=== PATIENT | male | born 1945 | race Caucasian/White ===

== ENCOUNTER 2025-07-16 14:54 | Emergency (ER) | payer BC, MEDICARE, SELFPAY ==
[2025-07-16 14:57] VITALS: BP 144/80; PULSE 65; RESP 16; TEMP 36.8; O2SAT 97; BMI 26.6
--- NOTE | 2025-07-16 14:57 | ED.GENADULT ---
HPI - General Adult General Chief complaint: Wound/Laceration Stated complaint: cut inside of mouth Time Seen by Provider: 07/16/25 15:16 Source: patient and RN notes reviewed Mode of arrival: ambulatory Limitations: no limitations History of Present Illness ED Provider: Nasrin Ruelas PA-C HPI narrative: This is an 80-year-old male, with a history of hypertension, hyperlipidemia, and anticoagulated on Eliquis, who presents emergency department after cutting the inside of his mouth. Patient states that he was eating a toasted bagel and accidentally cut underneath his tongue. He states that it has been bleeding for the last 6 hours. He has been applying pressure without any relief. He denies any dizziness or blurred vision. No other complaints or concerns at this time. MD complaint: Laceration Related Data Allergies Allergy/AdvReac Type Severity Reaction Status Date / Time No Known Allergies (No Known Allergy Verified 07/16/25 15:00 Allergies*) PMFSH Social History Social History Advance Directives: No Advance Directives Information Provided: No Do you have a plan to hurt others: No Plan Physical Exam ED Exam Exam: General: Awake, alert, and oriented X3. No acute distress. HEENT: Left lateral floor of mouth, there is a pinpoint laceration with active bleeding noted. CVS: Normal heart rate and rhythm. Pulses normal. Respiratory: No respiratory distress Skin: Warm, dry, no rashes noted to exposed skin. Normal skin color. Normal skin turgor. Extremities: Normal to inspection Neuro: Oriented X 3. No motor deficit. No sensory deficit. Vital Signs: Vital Signs - 24 hr 07/16/25 14:57 07/16/25 16:41 Temperature 98.3 F 98.3 F Pulse Rate 65 66 Respiratory Rate 16 16 Blood Pressure 144/80 H 127/75 Pulse Oximetry 97 97 Oxygen Delivery Method Room Air Room Air BMI result Body Mass Index 26.6 Medications Administered Discontinued Medications Generic Name Dose Route Start Last Admin Trade Name Freq PRN Reason Stop Dose Admin Silver Nitrate 1 appl 07/16/25 15:01 07/16/25 15:20 Silver Nitrate Applicator Stick..Ea. TOPICAL 07/16/25 15:02 1 appl ONCE ONE Administration Tranexamic Acid 1,000 mg 07/16/25 15:17 07/16/25 15:20 Tranexamic Acid 1,000 Mg/10 Ml Vial IRRIGATION 07/16/25 15:18 1,000 mg ONCE ONE Administration Medical Decision Making Medical Decision Making MDM Narrative: This is a 80-year-old male who presents emergency department with concerns of abrasion to his floor of his mouth. He is eating a hard bagel when he suddenly lacerated this area. There has been active bleeding since. No dizziness, blurred vision, chest pain or shortness for breath. Pinpoint laceration noted. Silver nitrate applied, hemostasis not achieve therefore TXA soaked gauze applied to wound, left on for 20 minutes, removed, and reapplied for 10 more minutes, hemostasis achieved, patient tolerated procedure well without any complications or concerns. Given strict return precautions. He understands and agrees with plan. Patient stable for discharge. Differential Diagnosis Differential Diagnoses: The differential diagnosis associated with the presentation includes Laceration, abrasion, puncture wound Discharge Plan Discharge Clinical Impression: Abrasion of lower gingiva Patient Disposition: Home, Self-Care Instructions: Abrasion (ED) Additional Instructions: You were seen in the emergency department after cutting the inside of your mouth. We applied a silver nitrate stick to anticipate on burning the vessel however this did not work therefore we applied medication to help stop the bleeding. This was successful. It is very important that you eat soft foods over the next couple of days. Avoid very hot or very cold substances. If any new or worsening symptoms occur including but not limited to rebleeding, increased pain, please return for re-evaluation. Interventions: ED Discharge Assessment Last Done: 07/16/25 16:41 Discharge Date/Time: 07/16/25 16:42 Print Language: Kittitian
[2025-07-16] MEDS: Tranexamic Acid 1,000 MG/10 ML VIAL 1000 MG IRRIGATION (15:20)
[2025-07-16] MEDS: Silver Nitrate Applicator STICK..EA. 1 APPL TOPICAL (15:20)
--- OUTSIDE RECORDS SUMMARY | 2025-07-16 15:35 | XMS_ITS | Encounter Summary ---
Author Organization [facility] Address [address] [place] [address] Phone Care Team Providers Care Senior Policy Analyst Name Role Phone Will Nicole MD Unavailable [phone] Maciel Martinez MD Primary Care Provider [phone] Encounter Details Date Type Department Care Team (Late st Contact Info) Description 04/23/2024 Ancillary Orders [facility] [address] [facility] [address]rd Floor, [address] [place] [address] Ryan Porter MD [address] [place] [address] [email or web address] Social History Tobacco Use Types Packs/Day Years Used Date Smoking Tobacco: Former Cigarettes 0.5 16 1 5 - 1970 Smokeless Tobacco: Never Comments:Smoking History Pac ks/day: <=0.5 Quit smokin10/27/1970 Alcohol Use Standard Drinks/Week Comments Yes 7 (1 standard drink = 0.6 oz pur e alcohol) Wine nightly w/ dinner Education Answer Date Recorded Are you interested in more education? Not on raven e 03/01/2023 Are you concerned about learning? Not on file 03/01/2023 No 03/01/2023 No 03/01/2023 Food Answer Date Recorded Within the past 6 months we worried whether our food would run out before we got money to buy more. I choose not to answer 07/22/2023 Within the past 6 months the food we bought just didn't last and we didn't have enough money to get more. I choose not to answer 07/22/2023 Residential Stability Answer Date Recor ded What is your housing situation today? I choose n ot to answer 07/22/2023 How many times have you move d in the past 12 months? I choose not to answer 07/22/2023 Paying for Meds Answer Date Recorded Do you have trouble paying for medicines? I suzy se not to answer 07/22/2023 Paying Utility Bills Answer Date Record ed Do you have trouble paying y our heating or electricity bill? I choose not to answer 07/22/2023 Transportation Answer Date Recorded Has the lack of transportati on kept you from medical appointments or from getting medications? I choose not to answer 07/22/2023 Digital Access Answer Date Recorded No 07/22/2023 No 07/22/2023 Do you have reliable internet access at home? I choose not to answer 07/22/2023 Do you have a device (e.g., phone, tablet, computer) with a working camera? I choose not to answer 07/22/2023 Sex and Gender Information Value Date Recorded Sex Assigned at Male 05/25/2019 7:55 AM EDT Legal Sex Male 5:31 PM EST Gender Identity Male 05/25/2019 7:55 AM EDT Sexual Orientation Straight 05/25/2019 7: 55 AM EDT documented as of this encounter Plan of Treatment Upcoming Encounters Date Type Department Care Team (Late st Contact Info) Description 08/15/2025 9:30 AM EDT Office Visit [facility] [address] [place] [address] [place] [address] Maciel Martinez MD [address] [facility] [place] [address] 03/29/2026 8:20 AM EDT Office Visit [facility] [place] [address] Floor, [address] [place] [address] Will Nicole MD [address] [facility], [address] [place] [address] [email or web address] documented as of this encounter Visit Diagnoses Not on filedocumented in this encounter Additional Health Concerns Assessment Noted Time PHQ-2 Depression Total Score: 0 07/22/20 23 9:41 AM EDT documented as of this encounter Care Teams Senior Policy Analyst Relationship Specialty Start Date End Date Maciel Martinez MD [address] [place] [address], [address] [place] [address] [email or web address] PCP - General Internal Medicine 02/06/21 Will Nicole MD [address] [place] [address], [address] [address] [email or web address] Air Pumper Cardiology 04/30/19 documented as of this encounter Additional Source Comments The information contained in this document represents components of the legal health record. It is not the complete legal health record.[facility]
--- OUTSIDE RECORDS SUMMARY | 2025-07-16 15:35 | XMS_ITS | Encounter Summary ---
Author Organization [facility] Address [address] [facility] [address] [place] [address] Phone Care Team Providers Care Mat Weaver Name Role Phone Morgan Ly MD Primary Care Provider Unavailable Will Nicole MD Unavailable Maciel Martinez MD Primary Care Provider [phone] Encounter Details Date Type Department Care Team (Late Contact Info) Description 09/28/2020 Procedure Pass [facility] Endoscopy Admitting Dept Virtual Department [address] [place] [address] Social History Tobacco Use Types Packs/Day Years Used Date Smoking Tobacco: Former Smokeless Tobacco: Former Comments:Smoking History Pac ks/day: <=0.5 Quit smokin10/27/1970 Alcohol Use Standard Drinks/Week Comments Yes 7 (1 standard drink = 0.6 oz pur e alcohol) Sex and Gender Information Value Date Recorded Sex Assigned at Male 05/25/2019 7:55 AM EDT Legal Sex Male 5:31 PM EST Gender Identity Male 05/25/2019 7:55 AM EDT Sexual Orientation Straight 05/25/2019 7: 55 AM EDT documented as of this encounter Plan of Treatment Upcoming Encounters Date Type Department Care Team ([facility] Contact Info) Description 08/15/2025 9:30 AM EDT Office Visit [facility] [place] [address] [place] [address] Maciel Martinez MD [address] [place] [address], [address] [place] [address] 03/29/2026 8:20 AM EDT Office Visit [facility] [address] [place] [address] 3rd Floor, [address] [place] [address] Will Nicole MD [address] [place] [address], [address] [address] documented as of this encounter Visit Diagnoses Not on filedocumented in this encounter Care Teams Mat Weaver Relationship Specialty Start Date End Date Morgan Ly MD PCP - General Rheumatology 04/30/19 02/05/21 Maciel Martinez MD [address] [place] [address], [address] [place] [address] PCP - General Internal Medicine 02/06/21 Will Nicole MD [address] [place] [address], [address] [address] Groundskeeping Maintenance Cardiology 04/30/19 documented as of this encounter Additional Source Comments The information contained in this document represents components of the legal health record. It is not the complete legal health record.[facility]
--- OUTSIDE RECORDS SUMMARY | 2025-07-16 15:35 | XMS_ITS | Encounter Summary ---
Author Organization [facility] Address [address] [facility] [address] [place] [address] Phone Care Team Providers Care Management Consultant Name Role Phone Will Nicole MD Unavailable [phone] Maciel Martinez MD Primary Care Provider [phone] Encounter Details Date Type Department Care Team (Late st Contact Info) Description 05/03/2023 Procedure Pass [facility], [facility] Scan - [address] [address] Social History Tobacco Use Types Packs/Day Years Used Date Smoking Tobacco: Former Cigarettes 0.5 16 1 1970 Smokeless Tobacco: Never Comments:Smoking History Pac ks/day: <=0.5 Quit smokin10/27/1970 Alcohol Use Standard Drinks/Week Comments Yes 7 (1 standard drink = 0.6 oz pur e alcohol) Wine nightly w/ dinner Education Answer Date Recorded Are you interested in more education? Not on raven e 03/01/2023 Are you concerned about learning? Not on file 03/01/2023 No 03/01/2023 No 03/01/2023 Digital Access Answer Date Recorded No 03/23/2023 No 03/23/2023 Reliable internet access at home? Not on file 03/23/2023 Device with a working camera? Not on file Sex and Gender Information Value Date Recorded Sex Assigned at Male 05/25/2019 7:55 AM EDT Legal Sex Male 5:31 PM EST Gender Identity Male 05/25/2019 7:55 AM EDT Sexual Orientation Straight 05/25/2019 7: 55 AM EDT documented as of this encounter Functional Status * Calculated C-SSRS Risk Score (Lifetime/Recent) Answer Date of Assessment Author No Risk Indicated 05/03/2023 10:07 AM EDT Erma Cherry RN * [place] Suicide Severity Rating Scale (Screener/Recent Self-Report) Question Answer Date of Assessment Author 1. Wish to be (Past 1 Month) No 023 10:07 AM EDT Erma Cherry RN 2. Non-Specific Active Suici christiano Thoughts (Past 1 Month) No 05/03/2023 10:07 AM EDT Antonio Cherry RN 6. Suicidal Behavior (Lifetime) No 10:07 AM EDT Erma Cherry RN documented as of this encounter Plan of Treatment Upcoming Encounters Date Type Department Care Team (Late st Contact Info) Description 08/15/2025 9:30 AM EDT Office Visit [address] [place] [address] Maciel Martinez MD [address] [place] [address], [address] [address] 03/29/2026 8:20 AM EDT Office Visit [facility] [address] [place] [address] 3rd Floor, [address] [place] [address] Will Nicole MD [address] [place] [address], [address] [address] [email or web address] documented as of this encounter Visit Diagnoses Not on filedocumented in this encounter Additional Health Concerns Assessment Noted Time PHQ-2 Depression Total Score: 0 02/07/20 21 9:01 AM EDT documented as of this encounter Care Teams Management Consultant Relationship Specialty Start Date End Date Maciel Martinez MD [address] [place] [address], [address] [place] [address] PCP - General Internal Medicine 02/06/21 Will Nicole MD [address] [facility], [address] [place] [address] [email or web address] Patch Worker Cardiology 04/30/19 documented as of this encounter Additional Source Comments The information contained in this document represents components of the legal health record. It is not the complete legal health record.[facility]
--- OUTSIDE RECORDS SUMMARY | 2025-07-16 15:35 | XMS_ITS | Encounter Summary ---
Author Organization [facility] Address [address] [facility] [address] [place] [address] Phone Care Team Providers Care Sweatband Maker Name Role Phone Will Nicole MD Unavailable [phone] Maciel Martinez MD Primary Care Provider [phone] Encounter Details Date Type Department Care Team (Late st Contact Info) Description 07/14/2023 Procedure Pass [facility] [address] [place], [place] [id number] Social History Tobacco Use Types Packs/Day Years [...] Description 08/15/2025 9:30 AM EDT Office Visit [facility] [address] [place] [address] [place] [address] Maciel Martinez MD [address] [place] [address], [address] [place] [address] [email or web address] 03/29/2026 8:20 AM EDT Office Visit [facility] [address] [facility] 3rd Floor, [address] [place] [address] Will Nicole MD [address] [place] [address] [email or web address] documented as of this encounter Visit Diagnoses Not on filedocumented in this encounter Additional Health Concerns Assessment Noted Time PHQ-2 Depression Total Score: 0 07/22/20 23 9:41 AM EDT documented as of this encounter Care Teams Sweatband Maker Relationship Specialty Start Date End Date Maciel Martinez MD [address] [place] [address], [address] [place] [address] [email or web address] PCP - General Internal Medicine 02/06/21 Will Nicole MD [address] [place] [address], [address] [address] [email or web address] Cardiology 04/30/19 documented as of this encounter Additional Source Comments The information contained in this document represents components of the legal health record. It is not the complete legal health record.[facility]
--- OUTSIDE RECORDS SUMMARY | 2025-07-16 15:35 | XMS_ITS | Encounter Summary ---
Author Organization [facility] Address [address] [facility] [address] [place] [address] Phone Care Team Providers Care Social Security Benefits Interviewer Name Role Phone Will Nicole MD Unavailable [phone] Maciel Martinez MD Primary Care Provider [phone] Encounter Details Date Type Department Care Team (Late st Contact Info) Description 07/14/2023 Procedure Pass [facility] [address] [place] [address] Social History Tobacco Use Types Packs/Day Years [...] Description 08/15/2025 9:30 AM EDT Office Visit [facility] [address] [place] [address] Maciel Martinez MD [address] [place] [address], [address] [place] [address] [email or web address] 03/29/2026 8:20 AM EDT Office Visit [facility] [address] [facility] 3rd Floor, [address] [place] [address] Will Nicole MD [address] [place] [address], [address] [address] [email or web address] documented as of this encounter Visit Diagnoses Not on filedocumented in this encounter Additional Health Concerns Assessment Noted Time PHQ-2 Depression Total Score: 0 07/22/20 23 9:41 AM EDT documented as of this encounter Care Teams Social Security Benefits Interviewer Relationship Specialty Start Date End Date Maciel Martinez MD [address] [place] [address], [address] [place] [address] [email or web address] PCP - General Internal Medicine 02/06/21 Will Nicole MD [address] [place] [address], [address] [address] [email or web address] Parliamentary Counsel Cardiology 04/30/19 documented as of this encounter Additional Source Comments The information contained in this document represents components of the legal health record. It is not the complete legal health record.[facility]
--- OUTSIDE RECORDS SUMMARY | 2025-07-16 15:35 | XMS_ITS | Encounter Summary ---
Author Organization [facility] Address [address] [facility] [address] [place] [address] Phone Care Team Providers Care Instrument Mechanics Supervisor Name Role Phone Will Nicole MD Unavailable [phone] Maciel Martinez MD Primary Care Provider [phone] Encounter Details Date Type Department Care Team (Late st Contact Info) Description 09/09/2023 Procedure Pass Non-Invasive Cardiology [address] [place] [id number] Social History Tobacco Use Types Packs/Day Years [...] Description 08/15/2025 9:30 AM EDT Office Visit [facility] [address] [place] [address] [place] [address] Maciel Martinez MD [address] [place] [address], [address] [place] [address] 03/29/2026 8:20 AM EDT Office Visit [facility] [address] [place] [address] 3rd Floor, [address] [place] [address] Will Nicole MD [address] [place] [address], [address] [place] [address] documented as of this encounter Visit Diagnoses Not on filedocumented in this encounter Additional Health Concerns Assessment Noted Time PHQ-2 Depression Total Score: 0 07/22/20 23 9:41 AM EDT documented as of this encounter Care Teams Instrument Mechanics Supervisor Relationship Specialty Start Date End Date Maciel Martinez MD [address] [place] [address], [address] [place] [address] PCP - General Internal Medicine 02/06/21 Will Nicole MD [address] [place] [address], [address] [place] [address] Computer Forwarding System Markup Clerk Cardiology 04/30/19 documented as of this encounter Additional Source Comments The information contained in this document represents components of the legal health record. It is not the complete legal health record.[facility]
--- OUTSIDE RECORDS SUMMARY | 2025-07-16 15:35 | XMS_ITS | Clinical Summary ---
Author Organization [facility] Address [address] [address] Phone Care Team Providers Care Novelty Candy Maker Name Role Phone Will Nicole MD Unavailable [phone] Maciel Martinez MD Primary Care Provider [phone] Allergies No known active allergies Medications Medication-Free Text daily. Multivitamin Active magnesium oxide 250 mg (150 mg elemental) Tab Take 250 mg by mouth daily. Active sildenafiL (VIAGRA) 100 mg tablet take one tablet by mouth every day as needed 10 tablet 2 07/15/20 24 Active atorvastatin (LIPITOR) 40 MG tabletIndication s:Medication refill Take 1 tablet (40 mg total) by mouth daily. 90 tablet 3 02/29/20 25 Active nitroglycerin (NITROSTAT) 0.4 MG SL tabletIndication s:Medication refill TAKE 1 TABLET BY MOUTH EVERY 5 MINUTES NEEDED FOR CHEST PAIN 50 tablet 1 02/29/20 25 Active metoprolol succinate (TOPROL-XL) 25 MG 24 hr tabletIndication s:Benign essential hypertension Take 1 tablet (25 mg total) by mouth daily. 90 tablet 5 04/11/20 25 Active rivaroxaban (XARELTO) 20 mg Tab Take 1 tablet (20 mg total) by mouth daily with dinner. 90 tablet 5 09/03/20 25 Active rivaroxaban (XARELTO) 20 mg Tab Take 1 tablet (20 mg total) by mouth daily with dinner. 90 tablet 5 04/08/20 24 025 Discontin ued(Reord er) Active Problems Problem Noted Date Diagnosed Date Primary osteoarthritis involving multiple joints 08/10/2024 Overview (08/10/2024): R hip, R great toe Hematoma 04/23/2024 Assessment & Plan (04/23/2024 2:52 PM EDT): Patient had swelling in the right groin after the procedure. Doppler ultrasound did not show any evidence of pseudoaneurysm. It is likely hematoma which has come down with time Persistent atrial fibrillation 02/22/2024 Assessment & Plan (09/27/2024 9:41 AM EST): Currently sinus rhythm off amiodarone. Patient has lost 15 pounds since last visit. Has cut down on alcohol. Assessment & Plan (04/23/2024 2:52 PM EDT): S/p PFA ablation of pulmonary veins and posterior wall. Will cut down on the dose of amiodarone to 100 mg once a day. If patient continues to have no more episodes of atrial fibrillation can stop amiodarone in June. Assessment & Plan (02/22/2024 7:15 PM EDT): We had a detailed discussion with the patient with regards to rate control versus rhythm control. Patient at this point opted for rhythm control with ablation. Will continue amiodarone. Will request for ablation. Risk and benefits of the procedure were discussed in detail. 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 Butts March 2022 and symptoms were improving. 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 He underwent a atrial fibrillation ablation in March 2024 which was successful. EKG today shows normal sinus bradycardia, 55 bpm. He no longer needs to take amiodarone 100 mg daily and will discontinue this medication. For now I have suggested that he continue taking Xarelto 20 mg daily as an anticoagulant due to an elevated CHADS2 Vascor and for stroke prevention. He does have an appoint with Dr. Porter in September and he can discuss this with Dr. Porter on whether he can discontinue this medication as well. Assessment & Plan (05/22/2020 1:17 PM EDT): The patient was originally thought to have an episode of A. fib while in his PCPs office last year. He was then started on Eliquis. However, after review it was determined that this was not A. fib and his Eliquis was discontinued. EKG in the office today shows sinus bradycardia. He will continue on aspirin lifelong. Assessment & Plan (04/30/2019 3:56 PM EDT): Patient had an episode of atrial fibrillation earlier this week while at his PCP office. This is his first occurrence of atrial fibrillation. ECG in the office today showing he is back in sinus rhythm. He was asymptomatic while in atrial fibrillation. He is already on atenolol for blood pressure management, heart rate was 40 bpm with his episode of A. fib in the office, today in the office it is 65. He ultimately decided he was amenable to starting formal anticoagulation. He chose Eliquis, I have given him samples here in the office and placed a prescription for him. We did discuss at length the risks of bleeding while on anticoagulation and signs and symptoms to watch for. Benign essential hypertension 06/10/2018 Assessment & Plan (09/27/2024 9:42 AM EST): Blood pressure is controlled. Continue medications Assessment & Plan (08/11/2024 8:13 AM EDT): Blood pressure is well-controlled today at 116/72. He is on metoprolol 25 mg daily which she will continue without change. He is encouraged follow heart healthy diet including low-sodium and to continue exercising. Assessment & Plan (02/22/2024 7:16 PM EDT): Blood pressure is controlled. Continue medications. Assessment & Plan (05/22/2020 1:16 PM EDT): Blood pressure in the office today was 114/80, very well controlled. He does check his blood pressures at home. Continue current cardiac medications and doses. We did discuss the importance of a low-sodium diet and increasing his physical activity moving forward as he has had an unintentional 7 pound weight gain since last year. The patient is agreeable and states that now that his hip bursitis is feeling much better that he will be able to increase his exercise regimen. Assessment & Plan (04/30/2019 3:57 PM EDT): Pressure reasonable in the office today, set the elevated but may be due to our conversation. He will be seeing Dr. Nicole later this summer, if blood pressure remains elevated at that time can make medication adjustment. Assessment & Plan (06/10/2018 9:22 AM EDT): His blood pressures well controlled on the current medications. 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 Follows with [facility], stable Assessment & Plan (08/11/2024 8:15 AM EDT): He is asymptomatic. He is exercising at least an hour a day with walking. He is following a heart healthy diet. Will continue to optimize his cardiac risk factors. He is on Xarelto 20 mg daily for anticoagulation and is not taking an aspirin. He is on atorvastatin 40 mg daily, metoprolol XL 25 mg daily. SBP goal less than 130/80. LDL goal less than 70 mg/dL Assessment & Plan (05/22/2020 1:20 PM EDT): Patient has a history of coronary artery disease and has continued to be asymptomatic without angina or other complaints. Continue to optimize cardiac risk factors. He should continue on aspirin lifelong. The patient did ask for a refill of his sublingual nitroglycerin. He states that he has not used it at all, but rather was looking for a refill as his was old and unsure if it is . Assessment & Plan (06/10/2018 9:21 AM EDT): He is a history of coronary artery disease with multiple prior stents. He should remain on aspirin lifelong we'll continue to optimize his cardiac risk factors. Dyslipidemia 06/10/2012 Overview (12/16/2014): Dyslipidemia Assessment & Plan (05/22/2020 1:18 PM EDT): Last year's lipid panel from April 2019 showed LDL at goal at 49. Continue atorvastatin 40 mg. The patient did have a recent lipid panel drawn 3 weeks ago in which he states that his PCP said was well controlled. However, we do not have access to it today. I did encourage him to have that sent to us so that we can review his latest cholesterol panel to ensure his LDL is at goal <70. Assessment & Plan (06/10/2018 9:21 AM EDT): I'll try to get some blood work from your office. His lipids in the passive been excellent on the atorvastatin 40. Resolved Problems Problem Noted Date Diagnosed Date Resolved Date Acute upper respiratory infection 11/05/2022 07/29/2023 Assessment & Plan (11/05/2022 10:05 AM EST): He likely has a mild case of COPD which has been exacerbated by viral URI. His has an albuterol inhaler which he can use 2 puffs every 6 hours as needed for cough or shortness of breath. Also like him to take prednisone for a few days. Symptoms should gradually improve over the next week or so. If he does not see resolution, he should contact our office for further recommendations. Subdural hemorrhage 06/10/2012 02/05/20 22 Overview (12/16/2014): Subdural hemorrhage Assessment & Plan (04/30/2019 3:57 PM EDT): I questioned him about this diagnosis as we are starting formal anticoagulation today. He says this occurred when he was quite young and suffered head trauma while in the . Immunizations Immunization Administration Dates Next Due COVID-19 (Pre-08/18) Pfizer Vaccine, mRNA, PF 12/19/2020,11/28/2020 INFLUENZA, SPLIT VIRUS, TRIV ALENT W/ PRESERVATIVE IM 08/26/2016,08/31/2014 Influenza High-Dose Quadriva lent Preservative Free IM 07/29/2023,07/05/2021 Influenza High-Dose Trivalen t Preservative Free IM 07/26/2024,07/24/2019,08/04/2018,08/16,08/26/2016 Influenza Quadrivalent Adjuv anted Preservative Free IM 07/26/2022,07/15/2020 Influenza Quadrivalent Prese rvative Free IM 08/16/2017 Influenza Split (Incl. Purif ied Surface Antigen) 08/27/2013,08/27/2012,07/27/2011,08/27,08/27/2009 Influenza quadrivalent nasal 10/27/2000 Influenza, Unspecified Formulation 08/16,07/18/2015,11/04/2013(Defer red: Other) Pneumococcal conjugate PCV13 07/15/2020,02/21/20 15 Pneumococcal polysaccharide PPSV23 02/14/2009 Pneumococcal, Unspecified Formulation 11/04/2013 (Deferred: Other) Td (adult) 5 Lf Tetanus Toxo id, PF, Adsorbed 09/23/2006 Tdap 04/01/2016 Zoster live 02/14/2009 Zoster recombinant 08/30/2019,05/16/2019 Family History Medical History Relation Comments Dementia Brother CV disease Father Liver cancer Mother Relation Status Comments Brother Father Mother Sister Social History Tobacco Use Types Packs/Day Years Used Date Smoking Tobacco: Former Cigarettes 0.5 16 1 1970 Smokeless Tobacco: Never Tobacco Cessation:Counseling Given: Not Answered Comments:Smoking History Packs/day: <=0.5 Quit smokin10/27/1970 Alcohol Use Standard Drinks/Week Comments Yes 7 (1 standard drink = 0.6 oz pur e alcohol) Wine nightly w/ dinner Child or Family Care Answer Date Record ed Do you have problems with on e of the following making it difficult for you to work, study, or receive health care? No 08/10/2024 Education Answer Date Recorded Are you interested in more education? Not on raven e 03/01/2023 Are you concerned about learning? Not on file 03/01/2023 No 03/01/2023 No 03/01/2023 Food Answer Date Recorded Within the past 6 months we worried whether our food would run out before we got money to buy more. Never True 08/10/2024 Within the past 6 months the food we bought just didn't last and we didn't have enough money to get more. Never True Residential Stability Answer Date Recor ded What is your housing situation today? I have wily sing 08/10/2024 How many times have you move d in the past 12 months? Zero (I did not move) 08/10/2024 Paying for Meds Answer Date Recorded Do you have trouble paying for medicines? No 08/10/2024 Paying Utility Bills Answer Date Record ed Do you have trouble paying your heating or elect ricity bill? No 08/10/2024 Transportation Answer Date Recorded Has the lack of transportati on kept you from medical appointments or from getting medications? No 08/10/2024 Digital Access Answer Date Recorded Yes 08/10/2024 Yes 08/10/2024 Do you have reliable internet access at home? No 08/10/2024 Do you have a device (e.g., phone, tablet, computer) with a working camera? Yes 08/10/2024 Intimate Partner Violence Answer Date R ecorded Are you denied basic needs s uch as food, clothing, or medical care? No 08/05/2024 In the past 12 months have y ou been in a relationship with a person who hurts, threatens, or tries to control you? No 08/05/2024 Are you denied basic needs s uch as food, clothing, or medical care? No 08/05/2024 In the past 12 months have y ou been in a relationship with a person who hurts, threatens, or tries to control you? No 08/05/2024 Sex and Gender Information Value Date Recorded Sex Assigned at Male 05/25/2019 7:55 AM EDT Legal Sex Male 5:31 PM EST Gender Identity Male 05/25/2019 7:55 AM EDT Sexual Orientation Straight 05/25/2019 7: 55 AM EDT Last Filed Vital Signs Vital Sign Reading Time Taken Comments Blood Pressure 108/74 03/30/2025 8:12 AM EDT Pulse 63 03/30/2025 8:12 AM EDT Temperature 35.6 C (96 F) 08/10/2024 7:51 AM EDT Respiratory Rate 19 08/14/2023 3:05 PM EDT Oxygen Saturation 97% 03/30/2025 8:12 AM EDT Inhaled Oxygen Concentration - - Weight 64 kg (141 lb) 03/30/2025 8:12 AM EDT Height 156.2 cm (5' 1.5 ) 03/30/2025 8:12 AM EDT Body Mass Index 26.21 03/30/2025 8:12 AM EDT Plan of Treatment Upcoming Encounters Date Type Department Care Team (Late st Contact Info) Description 08/15/2025 9:30 AM EDT Office Visit [facility] Medicine [address] [place] [address] [place] [address] Maciel Martinez MD [address] [facility], [address] [place] [address] 03/29/2026 8:20 AM EDT Office Visit [facility] [address] [place] [address] [address], [address] [place] [address] Will Nicole MD [address] [place] [address], [address] [place] [address] [email or web address] Health Maintenance Due Date Last Done Comments RSV VACCINE (1 - 1-dose 75+ series) 2019 INFLUENZA VACCINE (#1) 2025 , 07/29/2023, 07/26/2022, Additional history exists COVID-19 VACCINE ( season) 2025 07/26/2024, 07/29/2023, 07/16/2022, Additional history exists PNEUMOCOCCAL VACCINES (50+ years) (3 of 3 - PCV20 or PCV21) 07/15/2025 07/15/2020, 02/20/2015, 02/14/2009 DEPRESSION SCREENING 08/05/2025 08/05/2024 BLOOD PRESSURE 09/29/2025 03/30/2025 CREATININE LEVEL 10/01/2025 10/01/2024, , 07/29/2023, Additional history exists Adult Td,Tdap Booster 04/01/2026 04/01/2016, 006 ZOSTER VACCINES Completed 08/30/2019, 04/27, 02/14/2009 HEPATITIS A VACCINES Aged Out No long er eligible based on patient's age to complete this topic HIB VACCINES Aged Out No longer eligi ble based on patient's age to complete this topic MENINGOCOCCAL VACCINES (ACWY) Aged Out No longer eligible based on patient's age to complete this topic MENINGOCOCCAL VACCINES (B) Aged Out N o longer eligible based on patient's age to complete this topic Medical Devices Implanted Type Area Leaf Conditioner Device Identifier Shelf Expiration Date Model / Serial / Lot Lens Lens Bilateral: Eye Stent Stent Heart Procedures Procedure Name Priority Date/Time Associated Diagnosis Comments COMPREHENSIVE METABOLIC PANEL Routine 10/01/2024 9:40 AM EST Elevated alkaline phosphatase level from Last 3 Months or Most Recently Relevant to Health Maintenance Results * (ABNORMAL) Comprehensive metabolic panel (10/01/2024 9:40 AM EST) SODIUM 142 133 - 146 mmol/L [facility] POTASSIUM 4.7 3.3 - 5.1 mmol/L [facility] CHLORIDE 105 96 - 108 mmol/L [facility] CO2 30 21 - 35 mmol/L [facility] BUN 22(H) 6 - 19 mg/dL [facility] CREATININE 1.10 0.5 - 1.5 mg/dL [facility] GLUCOSE 89 70 - 99 mg/dL [facility] ALBUMIN 4.2 3.9 - 4.8 g/dL [facility] TOTAL PROTEIN 6.7 6.5 - 8.0 g/dL [facility] CALCIUM 9.9 8.4 - 10.3 mg/dL [facility] ALKALINE PHOSPHATASE 136(H) 39 - 117 U/L [facility] TOTAL BILIRUBIN 0.8 0.0 - 1.2 mg/dL [facility] AST 30 0 - 37 U/L [facility] ALT 25 0 - 40 U/L [facility] GLOBULIN 2.5 1 - 4.8 g/dL [facility] EGFR 68 >59 mL/min/1.7 3m2 [facility] Comment:Estimated glomerular filtration rate calculated using the CKD-EPI refit equation. ANION GAP 12 10 - 20 mmol/L [facility] Blood 10/01/2024 9:40 AM EST 10/01/2024 9:57 AM EST us Maciel Martinez MD LAB BLOOD ORDERABLES Final Resu lt Performing Organization Address City/State/[facility] Co de Phone Number [address] [address] from Last 3 Months or Most Recently Relevant to Health Maintenance Insurance [facility] FEDERAL MEDICARE A [facility] MEDICARE A [facility] MEDICARE A [facility] MEDICARE A [facility] MEDICARE A [facility] MEDICARE A [facility] MEDICARE A [facility] MEDICARE A [facility] MEDICARE A [facility] Advance Directives For more information, please contact: [phone] (9AM - 5PM [facility], Friday-Friday) Documents on File Type Date Recorded Patient Ditch Worker Expl alli Healthcare Proxy 02/14/2021 1:52 PM Care Teams Novelty Candy Maker Relationship Specialty Start Date End Date Maciel Martinez MD [address] [place] [address], [address] [place] [address] PCP - General Internal Medicine 02/06/21 Will Nicole MD [address] [place] [address], [address] [place] [address] Transcribing Machine Mechanic Cardiology 04/30/19 Additional Source Comments The information contained in this document represents components of the legal health record. It is not the complete legal health record.[facility]
[2025-07-16 16:41] VITALS: BP 127/75; PULSE 66; RESP 16; TEMP 36.8; O2SAT 97
== END 2025-07-16 16:42 | disposition home or self-care (01) ==
PROVIDERS: Emergency Provider Emergency Medicine; PCP Internal Medicine
DX: S00.512A Abrasion of oral cavity, initial encounter (principal); X58.XXXA Exposure to other specified factors, initial encounter; Y93.89 Activity, other specified; Y92.9 Unspecified place or not applicable; Y99.9 Unspecified external cause status
CPT/HCPCS: 99282; 99283

== ENCOUNTER 2025-09-19 08:22 | Emergency (ER) | payer BC, SELFPAY ==
[2025-09-19 08:28] VITALS: BP 153/76; PULSE 72; RESP 16; TEMP 36.3; O2SAT 99; BMI 27.2
--- NOTE | 2025-09-19 09:37 | ED_ITS ---
HPI - General Adult General Chief complaint: Neck Pain/Injury Stated complaint: General Medical Time Seen by Provider: 09/19/25 09:12 Source: patient, RN notes reviewed and old records reviewed Mode of arrival: ambulatory Limitations: no limitations History of Present Illness ED Provider: MAC Carter HPI narrative: 80-year-old male with medical history of HTN, HLD, anticoagulated on Eliquis presents to ED due to 4 days of neck pain. Patient states he woke up Carlos morning feeling fine but had noticed muscle tightness starting on the R side of his neck that has now spread in a band like pattern to his left side with worsening pain when he looks right. 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 Patient states he walks 2.5 miles daily with his but has not had any increased physical activity, injury, fall or trauma. Patient denies recent illness, travel, radicular symptoms, fevers, weight loss, headaches, visual changes, nausea, vomiting, weakness, dizziness, chest pain, SOB, urinary symptoms MD complaint: Neck pain Related Data Previous Rx's ?Medication ?Instructions ?Recorded cyclobenzaprine 5 mg tablet 5 mg PO TID PRN muscle spa sm #15 09/19/25 tabs Allergies Allergy/AdvReac Type Severity Reaction Status Date / Time No Known Allergies (No Known Allergy Verified 09/19/25 08:31 Allergies*) Review of Systems Review of Systems: Yes all other systems are reviewed and are negative PMFSH Past Medical History Attestation statement: The following information was validated with the patient. Source: old records reviewed and nursing notes reviewed Social History Social History Advance Directives: No Advance Directives Information Provided: No Physical Exam ED Vital Signs: Vital Signs - 24 hr 09/19/25 08:28 Temperature 97.3 F Pulse Rate 72 Respiratory Rate 16 Blood Pressure 153/76 H Pulse Oximetry 99 Oxygen Delivery Method Room Air BMI result Body Mass Index 27.2 GENERAL APPEARANCE: ?AxOx4, generally well-appearing, no acute distress. HEENT: ?NC, AT. MMM. EOMI, clear conjunctiva, oropharynx clear. NECK: ?Supple without lymphadenopathy. TTP of B/L cervical paraspinal muscles with and area of significant muscle tension palpated over the R proximal trapezius muscle, no midline spinal tenderness, no bony step offs or anatomical abnormalities palpated. Full ROM intact but patient does have pain when in extension, B/L lateral bending intact. HEART:? Normal rate and regular rhythm, normal S1/S2, no m/r/g LUNGS:? CTAB, moving air well. No crackles or wheezes are heard. ABDOMEN: ?Soft, nontender, nondistended with good bowel sounds heard. BACK: No CVAT, no obvious deformity. EXTREMITIES: ?Without cyanosis, clubbing or edema. NEUROLOGICAL: ?Grossly nonfocal. Alert and oriented, moving all 4 extremities. Observed to ambulate with normal gait. Skin: ?Warm and dry without any rash. Medical Decision Making Medical Decision Making MDM Narrative: 80-year-old male with medical history of HTN, HLD, anticoagulated on Eliquis presents to ED due to 4 days of neck pain that he describes as muscle tension that started in the R side of the neck and has progresesd to band like pattern with pain of R side more significant than L. History of osteoarthritis of B/L shoulders and acromioclavicular joints. Patient states he had previous episode 2 years ago and presents with discharge papers from this visit where he was given IM Toradol injection. Patient is requesting same today, however is now on Eliquis. Denies red flag symptoms including weight loss, fevers/chills, history of IVDU, recent illness, radicular symptoms, headaches, visual changes, weakness, dizziness VS on initial observation-BP 153/76, pulse rate of 72, respiratory rate of 16, afebrile with oral temp of 97.3?, O2 saturation 99% on room air. On physical exam the neck is soft and supple without lymphadenopathy. TTP of B/L cervical paraspinal muscles with and area of significant muscle tension palpated over the R proximal trapezius muscle, no midline spinal tenderness, no bony step offs or anatomical abnormalities palpated. Full ROM intact but patient does have pain when in extension, B/L lateral bending intact. Patient presented with 4 days of neck pain that came on gradually, feels similar to previous episodes of musculoskeletal pain due to B/L shoulder osteoarthritis. No injury/trauma/fall or increased physical activity. No indication for advanced imaging today. Patient is afebrile, ROM is intact without radicular symptoms, no red flag symptoms as stated above. Less likely to be meningitis, fracture, discitis. On physical exam there is a significant area of muscle tension over the right proximal trapezius, the patient has no midline spinal tenderness to palpation with pain when looking to the R side, presentation most consistent with R sided torticollis. Patient requesting Toradol today however is on Eliquis. Patient will be discharged with 5 day course of Flexeril, and counseled to take 500 mg of Tylenol every 6 hours and use heat over the affected area. Patient has follow up with PCP I counseled patient to follow up as he may need physical therapy. Patient feels well enough to go home today, is in agreement with the plan. Differential Diagnosis Differential Diagnoses: The differential diagnosis associated with the presentation includes Meningitis Cervical fracture Cervical dislocation Osteoarthritis Cervical neck strain Torticollis Admission/Observation Consideration of admission/observation: Escalation of care including admission/observation considered External Record Review External record reviewed: Inpatient record, Office record and Outpatient record Chronic Conditions Patient?s care impacted by: Hypertension and Other (HLD ) Discharge Plan Discharge Clinical Impression: Torticollis Patient Disposition: Home, Self-Care Instructions: Neck Pain (ED) Additional Instructions: You were evaluated in the emergency department today due to neck pain. Your physical exam was reassuring as you had full range of motion, with an area of significant muscle tension palpated over the right side of the trapezius muscle, your symptoms are most consistent with a torticollis meaning a muscle spasm of the R side of your neck muscles. You are being prescribed a 5 day course of flexeril for muscle spasm, do not dri ve or operate heavy machinery while on this medication as it can make you drowsy. Additionally, I recommend you take 500mg of Tylenol every 6 hours, use heating pad, and perform gentle stretching for management. The worst thing you can do is stay still and decrease your physical activity as this can make muscle spasm worse. Please follow up with your primary care doctor as you may need referral for physical therapy. It is not uncommon for muscle spams to last 4-6 weeks. Please return to the emergency department if you experience chest pain, shortness of breath, dizziness, weakness, increased pain, numbness or tingling of your arms or hands, fevers or any new/worsening/concerning symptoms. Prescriptions: New cyclobenzaprine 5 mg tablet 5 mg PO TID PRN (Reason: muscle spasm) Qty: 15 0RF Print Language: Welsh
[2025-09-19 10:38] VITALS: BP 130/75; PULSE 68; RESP 16; TEMP 36.6; O2SAT 98
--- NOTE | 2025-09-19 10:39 | PC.NURSE ---
Pt sitting on the edge of the bed, reporting neck pain that radiates into his shoulders. Denies injury/falls. Pt reporting movement is the biggest trigger. Denies changes to bowel and bladder, denies AARON/vision changes. Pt denies numbness and tingling at this time as well. at bedside to drive pt home, able to steady with even gait at this time
[2025-09-19 10:40] VITALS: BP 130/75; PULSE 68; RESP 16; TEMP 36.6; O2SAT 98
--- OUTSIDE RECORDS SUMMARY | 2025-09-19 11:20 | XMS_ITS | Encounter Summary ---
Author Organization [facility] Address [address] [place] [address] Phone Care Team Providers Care Track And Field Coach Name Role Phone Morgan Ly MD Primary Care Provider Unavailable Will Nicole MD Unavailable [phone] Maciel Martinez MD Primary Care Provider [phone] Encounter Details Date Type Department Care Team (Late Contact Info) Description 09/28/2020 Procedure Pass [facility] Endoscopy Admitting Dept Virtual Department [address] [place] [address] Social History Tobacco Use Types Packs/Day Years [...] Upcoming Encounters Date Type Department Care Team ([facility] Contact Info) Description 03/29/2026 8:20 AM EDT Office Visit [facility] [address] [place] [address] 3rd Floor, [address] [place] [address] Will Nicole MD [address] [place] [address], [address] [place] [address] 08/24/2026 9:00 AM EDT Office Visit [facility] [address] [address] Maciel Martinez MD [address] [place] [address], [address] [place] [address] documented as of this encounter Visit Diagnoses Not on filedocumented in this encounter Care Teams Track And Field Coach Relationship Specialty Start Date End Date Morgan Ly MD PCP - General Rheumatology 04/30/19 02/05/21 Maciel Martinez MD [address] [place] [address], [address] [place] [address] PCP - General Internal Medicine 02/06/21 Will Nicole MD [address] [place] [address], [address] [place] [address] Machine Baster Cardiology 04/30/19 documented as of this encounter Additional Source Comments The information contained in this document represents components of the legal health record. It is not the complete legal health record.[facility]
--- OUTSIDE RECORDS SUMMARY | 2025-09-19 11:20 | XMS_ITS | Encounter Summary ---
Author Organization [facility] Address [address] [place] [address] Phone Care Team Providers Care Head Baker Name Role Phone Will Nicole MD Unavailable [phone] Maciel Martinez MD Primary Care Provider [phone] Encounter Details Date Type Department Care Team (Late st Contact Info) Description 09/09/2023 Procedure Pass Non-Invasive Cardiology [address] [place] [id number] Social History Tobacco Use Types Packs/Day Years [...] Care Team (Late st Contact Info) Description 03/29/2026 8:20 AM EDT Office Visit [facility] [address] [place] [address] 3rd Floor, [address] [place] [address] Will Nicole MD [address] [place] [address], [address] [place] [address] 08/24/2026 9:00 AM EDT Office Visit [facility] [address] [place] [address] [place] [address] Maciel Martinez MD [address] [place] [address], [address] [place] [address] documented as of this encounter Visit Diagnoses Not on filedocumented in this encounter Additional Health Concerns Assessment Noted Time PHQ-2 Depression Total Score: 0 07/22/20 23 9:41 AM EDT documented as of this encounter Care Teams Head Baker Relationship Specialty Start Date End Date Maciel Martinez MD [address] [place] [address], [address] [place] [address] PCP - General Internal Medicine 02/06/21 Will Nicole MD [address] [place] [address], [address] [place] [address] Brush Clearing Laborer Cardiology 04/30/19 documented as of this encounter Additional Source Comments The information contained in this document represents components of the legal health record. It is not the complete legal health record.[facility]
--- OUTSIDE RECORDS SUMMARY | 2025-09-19 11:20 | XMS_ITS | Encounter Summary ---
Author Organization [facility] Address [address] [place] [address] Phone Care Team Providers Care Coding Compliance Specialist Name Role Phone Will Nicole MD Unavailable [phone] Maciel Martinez MD Primary Care Provider [phone] Encounter Details Date Type Department Care Team (Late st Contact Info) Description 07/14/2023 Procedure Pass [facility] Cardiovascular And Interventional Radiology [address] [place] [address] Social History Tobacco Use Types Packs/Day Years [...] Description 03/29/2026 8:20 AM EDT Office Visit [facility] [address] [place] [address] 3rd Floor, [address] [place] [address] Will Nicole MD [address] [place] [address] 08/24/2026 9:00 AM EDT Office Visit [facility] [address] [place] [address] Maciel Martinez MD [address] [place] [address], [address] [place] [address] documented as of this encounter Visit Diagnoses Not on filedocumented in this encounter Additional Health Concerns Assessment Noted Time PHQ-2 Depression Total Score: 0 07/22/20 23 9:41 AM EDT documented as of this encounter Care Teams Coding Compliance Specialist Relationship Specialty Start Date End Date Maciel Martinez MD [address] [place] [address], [address] [place] [address] PCP - General Internal Medicine 02/06/21 Will Nicole MD [address] [place] [address], [address] [address] [email or web address] Cardiology 04/30/19 documented as of this encounter Additional Source Comments The information contained in this document represents components of the legal health record. It is not the complete legal health record.[facility]
--- OUTSIDE RECORDS SUMMARY | 2025-09-19 11:20 | XMS_ITS | Encounter Summary ---
Author Organization [facility] Address [email or web address] [place] [address] Phone Care Team Providers Care Customs Director Name Role Phone Will Nicole MD Unavailable [phone] Maciel Martinez MD Primary Care Provider [phone] Encounter Details Date Type Department Care Team (Late st Contact Info) Description 04/23/2024 Ancillary Orders [facility] [address] [facility] 3rd Floor, [address] [place] [address] Ryan Porter MD [address] [place] [address] [email or web address] Social History Tobacco Use Types Packs/Day [...] Description 03/29/2026 8:20 AM EDT Office Visit [facility] [address] [place] [address] 3rd Floor, [address] [place] [address] Will Nicole MD [address] [facility], [address] [place] [address] 08/24/2026 9:00 AM EDT Office Visit [facility] [address] [place] [address] [place] [address] Maciel Martinez MD [address] [facility], [address] [place] [address] [email or web address] documented as of this encounter Visit Diagnoses Not on filedocumented in this encounter Additional Health Concerns Assessment Noted Time PHQ-2 Depression Total Score: 0 07/22/20 23 9:41 AM EDT documented as of this encounter Care Teams Customs Director Relationship Specialty Start Date End Date Maciel Martinez MD [address] [place] [address], [address] [place] [address] [email or web address] PCP - General Internal Medicine 02/06/21 Will Nicole MD [address] [place] [address], [address] [place] [address] [email or web address] Packer Cardiology 04/30/19 documented as of this encounter Additional Source Comments The information contained in this document represents components of the legal health record. It is not the complete legal health record.[facility]
--- OUTSIDE RECORDS SUMMARY | 2025-09-19 11:20 | XMS_ITS | Encounter Summary ---
Author Organization [facility] Address [address] [place] [address] Phone Care Team Providers Care Staffing Specialist Name Role Phone Will Nicole MD Unavailable [phone] Maciel Martinez MD Primary Care Provider [phone] Encounter Details Date Type Department Care Team (Late st Contact Info) Description 05/03/2023 Procedure Pass [facility], Ct Scan - [address] [address] Social History Tobacco Use Types Packs/Day Years [...] 10:07 AM EDT Erma Cherry RN * Talent Suicide Severity Rating Scale (Screener/Recent Self-Report) Question [...] Description 03/29/2026 8:20 AM EDT Office Visit [facility] [address] [place] [address] 3rd Floor, [address] [place] [address] Will Nicole MD [address] [place] [address], [address] [address] 08/24/2026 9:00 AM EDT Office Visit [facility] [address] [place] [address] [place] [address] Maciel Martinez MD [address] [place] [address], [address] [address] [email or web address] documented as of this encounter Visit Diagnoses Not on filedocumented in this encounter Additional Health Concerns Assessment Noted Time PHQ-2 Depression Total Score: 0 02/07/20 21 9:01 AM EDT documented as of this encounter Care Teams Staffing Specialist Relationship Specialty Start Date End Date Maciel Martinez MD [address] [place] [address], [address] [place] [address] PCP - General Internal Medicine 02/06/21 Will Nicole MD [address] [facility], [address] [place] [address] [email or web address] Design Release Engineer Cardiology 04/30/19 documented as of this encounter Additional Source Comments The information contained in this document represents components of the legal health record. It is not the complete legal health record.[facility]
--- OUTSIDE RECORDS SUMMARY | 2025-09-19 11:20 | XMS_ITS | Clinical Summary ---
Author Organization [facility] Address [address] [address] Phone Care Team Providers Care Diesel Mechanic Name Role Phone Will Nicole MD Unavailable [phone] Maciel Martinez MD Primary Care Provider Allergies No known active allergies Medications Medication-Free Text daily. Multivitamin Active magnesium oxide 250 mg (150 mg elemental) Tab Take 250 mg by mouth daily. Active atorvastatin (LIPITOR) 40 MG tabletIndication s:Medication refill Take 1 tablet (40 mg total) by mouth daily. 90 tablet 3 5 Active nitroglycerin (NITROSTAT) 0.4 MG SL tabletIndication s:Medication refill TAKE 1 TABLET BY MOUTH EVERY 5 MINUTES NEEDED FOR CHEST PAIN 50 tablet 1 5 Active metoprolol succinate (TOPROL-XL) 25 MG 24 hr tabletIndication s:Benign essential hypertension Take 1 tablet (25 mg total) by mouth daily. 90 tablet 5 5 Active rivaroxaban (XARELTO) 20 mg Tab Take 1 tablet (20 mg total) by mouth daily with dinner. 90 tablet 5 5 Active sildenafiL (VIAGRA) 100 mg tablet Take 1 tablet (100 mg total) by mouth every morning. 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 Follows with alanis MATTHEWS Assessment & Plan (08/15/2025 9:53 AM EDT): Stable, no sx Assessment & Plan (08/11/2024 8:15 AM EDT): [...] suffered head trauma while in the . Encounters Date Type Department Care Team Description 08/17/2025 8:06 AM EDT - 08/17/2025 11:59 PM EDT Hospital Encounter [facility] [address] [place] [address] Yasmani Zamora MD Discharge Disposition: Home or Self Care 08/15/2025 9:30 AM EDT Office Visit [facility] [address] [place] [address] Maciel Martinez MD Annual physical exam (Primary Dx); Arteriosclerotic heart disease; Benign essential hypertension; Persistent atrial fibrillation; Arthritis of right hip; Vitamin D deficiency, unspecified from Last 3 Months Immunizations Immunization Administration Dates Next Due COVID-19 [...] Influenza quadrivalent nasal 10/27/2000 Influenza, Unspecified Formulation 07/21,08/16/2017,07/18/2015,11/04(Deferred: Other) Pneumococcal conjugate PCV13 07/15/2020,02/21/20 15 Pneumococcal conjugate PCV20 08/15/2025 Pneumococcal polysaccharide PPSV23 02/14/2009 Pneumococcal, Unspecified Formulation 11/04/2013 (Deferred: Other) RSV Vaccine (bivalent) 08/12/2023 Td (adult) 5 Lf Tetanus Toxo id, [...] your housing situation today? I have wily bautista 08/10/2024 How many times have you move [...] Intimate Partner Violence Answer Date R ecorded Denied Basic Needs Not on file 08/08/2025 In the past 12 months have y ou been in a relationship with a person who hurts, threatens, or tries to control you? No 08/08/2025 Worried food would run out Not on file 08/08 In the past 12 months have y ou been in a relationship with a person who hurts, threatens, or tries to control you? No 08/08/2025 Sex and Gender Information Value Date Recorded Sex Assigned at Male 05/25/2019 7:55 AM EDT Legal Sex Male 5:31 PM EST Gender Identity Male 05/25/2019 7:55 AM EDT Sexual Orientation Straight 05/25/2019 7: 55 AM EDT Last Filed Vital Signs Vital Sign Reading Time Taken Comments Blood Pressure 118/62 08/15/2025 9:32 AM EDT Pulse 68 08/15/2025 9:32 AM EDT Temperature 36.3 C (97.3 F) 08/15/2025 9:32 AM EDT Respiratory Rate 19 08/14/2023 3:05 PM EDT Oxygen Saturation 97% 08/15/2025 9:32 AM EDT Inhaled Oxygen Concentration - - Weight 68 kg (150 lb) 08/15/2025 9:32 AM EDT Height 156.2 cm (5' 1.5 ) 08/15/2025 9:32 AM EDT Body Mass Index 27.89 08/15/2025 9:32 AM EDT Plan of Treatment Upcoming Encounters Date Type Department Care Team (Late st Contact Info) Description 03/29/2026 8:20 AM EDT Office Visit [facility] [address] [place] [address] Dr [address] Floor, [address] [place] [address] Will Nicole MD [address] [place] [address], [address] [place] [address] 08/24/2026 9:00 AM EDT Office Visit [facility] [address] [place] [address] [place] [address] Maciel Martinez MD [address] [place] [address], [address] [place] [address] Health Maintenance Due Date Last Done Comments COVID-19 VACCINE ( season) 2025 07/21/2025, 07/26/2024, 07/29/2023, Additional history exists BLOOD PRESSURE 02/13/2026 08/15/2025 Adult Td,Tdap Booster 04/01/2026 04/01/2016, 006 DEPRESSION SCREENING 08/08/2026 08/08/2025 CREATININE LEVEL 08/17/2026 08/17/2025, 03/2024, 03/25/2024, Additional history exists ZOSTER VACCINES Completed 08/30/2019, 04/27, 02/14/2009 RSV VACCINE Completed 08/12/2023 INFLUENZA VACCINE Completed 07/21/2025, , 07/29/2023, Additional history exists PNEUMOCOCCAL VACCINES (50+ years) Completed 08/15/2025, 07/15/2020, 02/20/2015, Additional history exists HEPATITIS A VACCINES Aged Out No long [...] this topic Medical Devices Implanted Type Area Superintendent System Operation Device Identifier Shelf Expiration Date Model / Serial / Lot Lens Lens Bilateral: Eye Stent Stent Heart Procedures Procedure Name Priority Date/Time Associated Diagnosis Comments BASIC METABOLIC PANEL (BMP) Routine 08/17/2025 8:32 AM EDT Annual physical exam CBC Routine 08/17/2025 8:32 AM EDT Annual physical exam 25-OH VITAMIN D Routine 08/17/2025 8:32 AM EDT Vitamin D deficiency, unspecified HEMOGLOBIN A1C Routine 08/17/2025 8:32 AM EDT Annual physical exam LFTS (HEPATIC PANEL) Routine 08/17/2025 8:32 AM EDT Annual physical exam LIPID PANEL Routine 08/17/2025 8:32 AM EDT Annual physical exam Arteriosclerotic heart disease TSH WITH REFLEX Routine 08/17/2025 8:32 AM EDT Annual physical exam VITAMIN B12 Routine 08/17/2025 8:32 AM EDT Annual physical exam from Last 3 Months Results * TSH with reflex (08/17/2025 8:32 AM EDT) TSH 1.76 0.27 - 4.20 uIU/mL [facility] Blood 08/17/2025 8:32 AM EDT 08/17/2025 8:38 AM EDT us Maciel Martinez MD LAB BLOOD BKR ORDERABLES Final Result [facility] [address] [place] [address] * (ABNORMAL) LFTs (hepatic panel) (08/17/2025 8:32 AM EDT) Pathologist [facility] ALKALINE PHOSPHATASE 132(H) 39 - 117 U/L [facility] TOTAL BILIRUBIN 0.7 0.0 - 1.2 mg/dL [facility] DIRECT BILIRUBIN 0.2 0.0 - 0.2 mg/dL [facility] Bilirubin (Indirect) 0.5 0 - 1.5 mg/dL [facility] AST 26 0 - 37 U/L [facility] ALT 20 0 - 40 U/L [facility] TOTAL PROTEIN 6.7 6.5 - 8.0 g/dL [facility] ALBUMIN 4.0 3.9 - 4.8 g/dL [facility] GLOBULIN 2.7 1 - 4.8 g/dL [facility] A/G Ratio 1.48 1.00 - 4.80 RATIO [facility] Blood 08/17/2025 8:32 AM EDT 08/17/2025 8:38 AM EDT us Maciel Martinez MD LAB BLOOD BKR ORDERABLES Final Result Performing Organization Address City/[facility]/ZIP Co de Phone Number [address] [address] * 25-OH vitamin D (08/17/2025 8:32 AM EDT) [facility] 25 [place] VIT D (TOTAL) 36 30 - 60 ng/mL [facility] Blood 08/17/2025 8:32 AM EDT 08/17/2025 8:38 AM EDT us Maciel Martinez MD LAB BLOOD BKR ORDERABLES Final Result [address] [address] * (ABNORMAL) CBC (08/17/2025 8:32 AM EDT) [facility] WBC 5.47 4.00 - 11.00 K/uL [facility] RBC 4.33(L) 4.50 - 5.90 M/uL [facility] HGB 13.7 13.5 - 17.5 g/dL [facility] HCT 42.6 41.0 - 53.0 % [facility] PLT 143(L) 150 - 450 K/uL [facility] MCV 98.4 80.0 - 100.0 fL [facility] MCH 31.6(H) 27.0 - 31.0 pg [facility] MCHC 32.2 32.0 - 36.0 g/dL [facility] RDW 12.9 11.5 - 14.5 % [facility] MPV 10.4 8.4 - 12.0 [facility] NRBC 0.00 0.00 /100 WBCs [facility] ABSOLUTE NRBC 0.00 0.00 K/uL [facility] Blood 08/17/2025 8:32 AM EDT 08/17/2025 8:38 AM EDT us Maciel Martinez MD LAB BLOOD BKR ORDERABLES Final Result Performing Organization Address City/[facility]/ZIP Co de Phone Number [address] [address] * Hemoglobin A1c (08/17/2025 8:32 AM EDT) HEMOGLOBIN A1C 5.1 4.3 - 5.8 % [facility] Blood 08/17/2025 8:32 AM EDT 08/17/2025 8:38 AM EDT us Maciel Martinez MD LAB BLOOD BKR ORDERABLES Final Result [address] [address] * Vitamin B12 (08/17/2025 8:32 AM EDT) VITAMIN B12 676 232 - 1,245 pg/mL [facility] Blood 08/17/2025 8:32 AM EDT 08/17/2025 8:38 AM EDT us Maciel Martinez MD LAB BLOOD BKR ORDERABLES Final Result Performing Organization Address [facility]/ZIP Co de Phone Number [address] [address] * (ABNORMAL) Lipid panel (08/17/2025 8:32 AM EDT) HDL 51 mg/dL [facility] Comment: Interpretation <40 mg/dL: Low HDL cholesterol (major risk factor for CHD) Greater than or equal to 60 mg/dL: High HDL cholesterol ( negative risk factor for CHD) HDL - cholesterol is affected by a number of factors, e.g. smoking, excerise, hormones, sex and age. CHOLESTEROL 114 0 - 240 mg/dL [facility] TRIGLYCERIDES 112 30 - 160 mg/dL [facility] LDL 41(L) 50 - 129 mg/dL [facility] Comment: LDL levels in terms of risk for coronary heart disease: <100 mg/dL: Optimal 100-129 mg/dL: Near or above optimal 130-159 mg/dL: Borderline high 160-189 mg/dL: High >190 mg/dL: Very High CARDIAC RISK RATIO 2.2(L) 3.4 - 5.0 C [facility] Blood 08/17/2025 8:32 AM EDT 08/17/2025 8:38 AM EDT us Maciel Martinez MD LAB BLOOD BKR ORDERABLES Final Result Performing Organization Address [facility] Co de Phone Number [address] [address] * Basic metabolic panel (08/17/2025 8:32 AM EDT) SODIUM 142 133 - 146 mmol/L [facility] CHLORIDE 106 96 - 108 mmol/L [facility] POTASSIUM 4.4 3.3 - 5.1 mmol/L [facility] CO2 28 21 - 35 mmol/L [facility] BUN 17 6 - 19 mg/dL [facility] CREATININE 1.00 0.5 - 1.5 mg/dL [facility] GLUCOSE 95 70 - 99 mg/dL [facility] CALCIUM 9.7 8.4 - 10.3 mg/dL [facility] EGFR 76 >59 mL/min/1.7 3m2 [facility] Comment:Estimated glomerular filtration rate calculated using the CKD-EPI refit equation. ANION GAP 12 10 - 20 mmol/L [facility] Blood 08/17/2025 8:32 AM EDT 08/17/2025 8:38 AM EDT us Maciel Martinez MD LAB BLOOD BKR ORDERABLES Final Result [facility] [address] [place] [address] from Last 3 Months Insurance [facility] A [facility] MEDICARE A [facility] MEDICARE A [facility] Advance Directives For more information, please contact: [phone] (9AM - 5PM [facility], Friday-Friday) Documents on File Type Date Recorded Patient Mortgage Accounting Clerk Expl anation Healthcare Proxy 02/14/2021 1:52 PM Care Teams Diesel Mechanic Relationship Specialty Start Date End Date Maciel Martinez MD [address] [place] [address], [address] [place] [address] PCP - General Internal Medicine 02/06/21 Will Nicole MD [address] [place] [address], [address] [place] [address] Flute Teacher Cardiology 04/30/19 Additional Source Comments The information contained in this document represents components of the legal health record. It is not the complete legal health record.[facility]
--- OUTSIDE RECORDS SUMMARY | 2025-09-19 11:20 | XMS_ITS | Encounter Summary ---
Author Organization [facility] Address [address] [facility] [address] [place] [address] Phone Care Team Providers Care Afternoon Babysitter Name Role Phone Will Nicole MD Unavailable [phone] Maciel Martinez MD Primary Care Provider [phone] Encounter Details Date Type Department Care Team (Late st Contact Info) Description 07/14/2023 Procedure Pass Echo Lab [facility] [address] [place] [address] Social History Tobacco Use Types Packs/Day [...] Description 03/29/2026 8:20 AM EDT Office Visit [facility] [address] [place] [address] [address]rd Floor, [address] [place] [address] Will Nicole MD [address] [place] [address] [email or web address] 08/24/2026 9:00 AM EDT Office Visit [address] [place] [address] Maciel Martinez MD [address] [place] [address], [address] [place] [address] documented as of this encounter Visit Diagnoses Not on filedocumented in this encounter Additional Health Concerns Assessment Noted Time PHQ-2 Depression Total Score: 0 07/22/20 23 9:41 AM EDT documented as of this encounter Care Teams Afternoon Babysitter Relationship Specialty Start Date End Date Maciel Martinez MD [address] [place] [address], [address] [place] [address] PCP - General Internal Medicine 02/06/21 Will Nicole MD [address] [place] [address], [address] [address] [email or web address] Meeting Specialist Cardiology 04/30/19 documented as of this encounter Additional Source Comments The information contained in this document represents components of the legal health record. It is not the complete legal health record.[facility]
== END 2025-09-19 10:41 | disposition home or self-care (01) ==
PROVIDERS: Emergency Provider Emergency Medicine; PCP Internal Medicine
DX: M43.6 Torticollis (principal); I10 Essential (primary) hypertension; E78.5 Hyperlipidemia, unspecified; Z79.01 Long term (current) use of anticoagulants
CPT/HCPCS: 99283; 99284